=== PATIENT | female | born 1985 | race Caucasian/White ===

== ENCOUNTER 2018-09-17 13:04 | Emergency (ER) | payer BC ==
--- OUTSIDE RECORDS SUMMARY | 2018-09-17 13:08 | XMS REPORT | Clinical Summary ---
:1985 Author Organization [facility] Address [address] [place] [address] Care Team Providers Name Role Phone Williams Martinez MD Primary Care Provider Allergies Active Allergy Reactions Severity Noted Date Comments Meperidine Other (See Comments) 04/17/2018 Hallucinate Medications Medication Sig Dispensed Refills Start Date End Date Status acetaminophen Take 325 mg by 0 Active (TYLENOL) 325 MG mouth every 6 tablet (six) hours as needed for fever. acetaminophen-codein Take 1-2 30 tablet 0 08/30/2018 Active e (TYLENOL WITH tablets by 9 CODEINE #3) 300-30 mouth every 6 mg per tablet (six) hours as needed for moderate pain for up to 30 days. HYDROcodone-acetamin Take 1 tablet 0 Discontinued ophen (NORCO) 10-325 by mouth every 8 mg per tablet 6 (six) hours as needed for moderate pain. sulfamethoxazole-tri Take 1 tablet 0 Discontinued methoprim (BACTRIM by mouth 2 8 SS) 400-80 mg per (two) times a tablet day. acetaminophen-codein Take 1 tablet 30 tablet 0 05/02/2018 e (TYLENOL WITH by mouth every 8 CODEINE #3) 300-30 6 (six) hours mg per tablet as needed for moderate pain for up to 10 days. naproxen (NAPROSYN) naproxen 500 0 03/19/2018 Discontinued 500 MG tablet mg tablet 8 sulfamethoxazole-tri daily. 0 Discontinued methoprim (BACTRIM) 8 400-80 mg per tablet acetaminophen-codein Take 1 tablet 0 Discontinued e (TYLENOL WITH by mouth every 8 CODEINE #3) 300-30 4 (four) hours mg per tablet as needed for moderate pain. levoFLOXacin Take 1 tablet 7 tablet 0 05/23/2018 Discontinued (LEVAQUIN) 500 MG (500 mg total) 8 tablet by mouth daily for 7 days. docusate sodium Take 1 capsule 20 capsule 0 05/30/2018 Discontinued (COLACE) 100 MG (100 mg total) 8 capsule by mouth 2 (two) times a day for 10 days. traMADol (ULTRAM) 50 Take 2 tablets 30 tablet 0 05/30/2018 Discontinued mg tablet (100 mg total) 8 by mouth every 6 (six) hours as needed for moderate pain for up to 10 days. docusate sodium Take 1 capsule 20 capsule 0 05/30/2018 (COLACE) 100 MG (100 mg total) 8 capsule by mouth 2 (two) times a day for 10 days. acetaminophen-codein Take 1 tablet 30 tablet 0 05/30/2018 e (TYLENOL WITH by mouth every 8 CODEINE #3) 300-30 4 (four) hours mg per tablet as needed for moderate pain for up to 10 days. tamsulosin (FLOMAX) Take 1 capsule 30 capsule 0 05/30/2018 0.4 mg capsule (0.4 mg total) 9 by mouth daily for 30 days. oxybutynin Take 1 tablet 90 tablet 0 05/30/2018 (DITROPAN) 5 MG (5 mg total) 9 tablet by mouth 3 (three) times a day as needed for bladder spasms for up to 30 days. ciprofloxacin Take 1 tablet 16 tablet 0 05/30/2018 (CIPRO) 500 MG (500 mg total) 8 tablet by mouth 2 (two) times a day for 8 days. Take for 5 days, then take remainder starting one day before follow up phenazopyridine Take 1 tablet 30 tablet 0 05/30/2018 (PYRIDIUM) 100 MG (100 mg total) 8 tablet by mouth 3 (three) times a day as needed for bladder spasms for up to 10 days. ciprofloxacin Take 1 tablet 6 tablet 0 07/11/2018 (CIPRO) 500 MG (500 mg total) 9 tablet by mouth 2 (two) times a day for 3 days. sulfamethoxazole-tri Take 1 tablet 14 tablet 0 09/03/2018 methoprim (BACTRIM by mouth 2 9 DS) 800-160 mg per (two) times a tablet day for 7 days. Active Problems Problem Noted Date UPJ (ureteropelvic junction) obstruction 05/01/2018 Encounters Date Type Specialty Care Team Description 09/16/2018 Telephone Urology Flori June MD 09/03/2018 Telephone Urology Flori June MD 08/30/2018 Telephone Urology Flori June MD 08/27/2018 Telephone Urology Flori June MD 08/26/2018 Office Visit Urology Flori June UPJ (ureteropelvic MD junction) obstruction 08/02/2018 Hospital Encounter Radiology Flori June, Kidney stones; UPJ (ureteropelvic junction) obstruction 08/02/2018 Hospital Encounter Radiology Flori June, Kidney stones; UPJ (ureteropelvic junction) obstruction 07/15/2018 Procedure visit Urology Flori June, Kidney stones (Primary Dx); UPJ (ureteropelvic junction) obstruction 07/11/2018 Telephone Urology Minoo Guerrero MA 07/01/2018 Procedure visit Urology Flori June UPJ (ureteropelvic MD junction) obstruction (Primary Dx) 07/01/2018 Telephone Urology Flori June MD 06/13/2018 Telephone Urology Flori June MD 05/29/2018 Surgery Urology Flori June, ROBOTIC RIGHT MD PYELOPLASTY, RIGHT URETEROSCOPY 05/29/2018 Anesthesia Event Urology Mervat Gilmore 05/29/2018 - Hospital Encounter General Internal Flori June UPJ ( ureteropelvic 05/31/2018 Medicine MD junction) obstruction 05/27/2018 Telephone Urology Flori June MD 05/23/2018 Telephone Urology Joey Avila MD 05/23/2018 Telephone Urology Joey Avila MD 05/20/2018 Pre-Admit Testing Pre-Admission Flori June, Pre-op testing Appointment Testing MD (Primary Dx) 05/20/2018 Refill Urology Joey Avila MD 05/16/2018 Telephone Urology Joey Avila MD 05/07/2018 Office Visit Urology Margarita Ureteropetoan Cook MD junction (UPJ) obstruction (Primary Dx) 05/07/2018 Hospital Encounter Radiology LANETTE AvilaJ (ureteropelvic MD Joey junction) obstruction 05/02/2018 Orders Only Urology LANETTE AvilaJ (ureteropelvic MD Joey junction) obstruction (Primary Dx) 05/02/2018 Telephone Urology Joey Avila MD 05/01/2018 - Hospital Encounter General Internal Margarita, Obstruction of left 05/02/2018 Medicine MD Joey ureteropelvic junction (UPJ) 05/01/2018 Telephone Urology Joey Avila MD 04/29/2018 Telephone Urology Joey Avila MD 04/22/2018 Orders Only Urology Sebastian Layne MA 04/22/2018 Telephone Urology Joey Avila MD 04/19/2018 Hospital Encounter Radiology Joey Avila MD 04/19/2018 Hospital Encounter Radiology Joey Avila MD 04/19/2018 Hospital Encounter Radiology Joey Avila MD 04/17/2018 Office Visit Urology Margarita, Obstruction of left MD Joey ureteropelvic junction (UPJ) (Primary Dx) 04/03/2018 Telephone Urology Joey Avila MD after 09/16/2017 Immunizations Name Dates Previously Given Next Due FLUCELVAX QUAD PF (0.5mL syringe) 05/01/2018 Family History Medical History Relation Name Comments Aneurysm Mother Relation Name Status Comments Mother Alive Social History Tobacco Use Types Packs/Day Years Used Date Current Some Day Smoker 0.5 18 Smokeless Tobacco: Never Used Tobacco Cessation: Ready to Quit: No; Counseling Given: No Alcohol Use Drinks/Week oz/Week Comments No Sex Assigned at Date Recorded Not on file Job Start Date Occupation Industry Not on file Not on file Not on file Travel History Travel Start Travel End No recent travel history available. 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 Plan of Treatment Date Type Specialty Care Team Description 09/27/2018 Appointment Radiology Flori June MD [address] [facility] [address] [place] [phone] Health Maintenance Due Date Last Done Comments CERVICAL CANCER SCREENING 2006 INFLUENZA VACCINE 01/16/2019 05/01/2018 Implants Implanted Type Area Tankroom Tender Device Shelf Model / Identifier Expiration Serial / Date Lot Clip Ligtng Hem-O-Aram Endoscpc Aplr [facility] Lg - [id number] Surgical N/A: WECK CLOSURE [id number] / Implanted: Qty: 1 on 05/29/2018 by Flori June MD Implants; Abdomen, SYSTEMS / Expanders; Middle Extenders; Quadrant/No Surgical n Specific Wires Clip Ligtng Hem-O-Aram Endoscpc Aplr [facility] Lg - [id number] Surgical N/A: WECK CLOSURE [id number] / Implanted: 05/29/2018 (Quantity not on file) Implants; Abdomen, SYSTEMS / Expanders; Middle Extenders; Quadrant/No Surgical n Specific Wires Stent Uretl Polrs Ult [id number] [id number] 26cm Hydroplus W/O Gw - [id number] Urological Right: BSC UROLOGY 01/30/2021 192 133 / Implanted: Qty: 1 on 05/29/2018 by Flori June MD Implants or Ureter, / Sets [place] [id number] Procedures Procedure Name Priority Date/Time Associated Comments Diagnosis PT AND PTT Routine 08/27/2018 9:11 UPJ (ureteropelvic Results for this AM CDT junction) procedure are in obstruction the results section. CBC WITH PLATELET AND Routine 08/27/2018 9:11 UPJ (ureteropelvic Results for this DIFFERENTIAL AM CDT junction) procedure are in obstruction the results section. COMPREHENSIVE Routine 08/27/2018 9:11 UPJ (ureteropelvic Results for this METABOLIC PANEL AM CDT junction) procedure are in obstruction the results section. MICROSCOPIC Routine 08/26/2018 10:32 Results for this EXAMINATION AM CDT procedure are in the results section. URINALYSIS, COMPLETE, Routine 08/26/2018 10:32 UPJ (ureteropelvic Results for this WITH REFLEX TO CULTURE AM CDT junction) procedure are in obstruction the results section. URINE CULTURE, Routine 08/26/2018 10:32 Results for this COMPREHENSIVE (JOSE C AM CDT procedure are in HIST) the results section. POC URINALYSIS Routine 08/26/2018 10:26 UPJ (ureteropelvic Results for this DIPSTICK AM CDT junction) procedure are in obstruction the results section. 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 US RENAL Routine 08/02/2018 11:30 Kidney stones Results for this AM [employer]ED TRUCK [employer] UPJ (ureteropelvic procedure are in junction) the results obstruction section. POC URINALYSIS Routine 07/15/2018 9:39 Kidney stones Results for this DIPSTICK AM [employer]ED [employer] procedure are in the results section. ESTIMATED GFR Routine 05/31/2018 4:56 Results for this AM [employer]ED [employer] procedure are in the results section. HC COMPLETE BLD COUNT Routine 05/31/2018 4:56 Results for this W/AUTO DIFF AM [employer]ED [employer]UCK [employer] procedure are in the results section. BASIC METABOLIC PANEL Routine 05/31/2018 4:56 Results for this AM [employer]ED [employer]UCK [employer] procedure are in the results section. ESTIMATED GFR Routine 05/30/2018 6:45 Results for this AM [employer]IENCED TRUCK [employer] procedure are in the results section. BASIC METABOLIC PANEL Routine 05/30/2018 6:45 Results for this AM [employer]ED TRUCK [employer] procedure are in the results section. BASIC METABOLIC PANEL Routine 05/30/2018 4:32 Results for this AM [employer]ED TRUCK [employer] procedure are in the results section. HEMOGLOBIN & Routine 05/30/2018 4:32 Results for this HEMATOCRIT AM [employer]ED [employer] procedure are in the results section. XR ABDOMEN 1 VW Routine 05/29/2018 3:40 Results for this PORTABLE PM [employer] procedure are in the results section. SURGICAL PATHOLOGY Routine 05/29/2018 3:09 Results for this REQUEST PM [employer]ED TR[employer] procedure are in the results section. HC COMPLETE BLD COUNT STAT 05/29/2018 2:30 Results for this W/AUTO DIFF PM [employer]ED TRUCK [employer] procedure are in the results section. ESTIMATED GFR STAT 05/29/2018 2:28 Results for this PM [employer]IENCED TRUCK [employer]IVER procedure are in the results section. BASIC METABOLIC PANEL STAT 05/29/2018 2:28 Results for this PM [employer]ED TRUCK [employer] procedure are in the results section. CALCULI ANALYSIS WITH Routine 05/29/2018 11:40 Results for this PHOTO AM EX[employer]IENCED TRUCK [employer]IVER procedure are in the results section. 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 TRUCK DRIVER Procedure Note - Mervat Gilmore - 05/29/2018 8:43 AM EXPERIENCED TRUCK DRIVER ANESTHESIA INTUBATION Performed by: Mervat Gilmore Authorized by: Stas Carlos MD Location: OR Urgency: Elective Difficult Airway: No Resident/GAS DESULFURIZER/AA: Mervat Gilmore Performed by: resident/GAS DESULFURIZER/AA Preoxygenated with 100% O2: Yes Mask Ventilation: Easy mask Final Airway Type: Endotracheal airway Final Endotracheal Airway: ETT Cuffed: Yes Technique Used: Direct laryngoscopy Insertion Site: Oral Blade Type: Ruiz Laryngoscope Blade/Videolaryngoscope Blade Size: 2 ETT Size (mm): 7.0 Cuff at minimum occlusion pressure: Yes Measured from: Lips ETT to Lips (cm): 20 Placement Verified by: CO2 detection, direct visualization and equal breath sounds Laryngoscopic view: Grade I - full view of glottis Number of Attempts at Approach: 1 PYELOPLASTY, LAPAROSCOPIC, 05/29/2018 8:00 AM EXPERIENCED TRUCK DRIVER UPJ (ureteropelvic junction) ROBOT-ASSISTED obstruction Special Needs DAVINCI ESTIMATED GFR Routine 05/20/2018 10:03 Results for this AM [employer]ED [employer]UCK [employer] procedure are in the results section. URINALYSIS SCREEN AND Routine 05/20/2018 10:03 Pre-op testing Results for this MICROSCOPY, WITH AM [employer]PERIENCED TRUCK DRIVER procedure are in REFLEX TO CULTURE the results section. HCG QUALITATIVE, SERUM Routine 05/20/2018 10:03 Pre-op testing Results for this SCREEN AM [employer]ED [employer]UCK [employer] procedure are in the results section. TYPE AND SCREEN Routine 05/20/2018 10:03 Pre-op testing Results for this AM [employer]ED [employer] procedure are in the results section. PARTIAL THROMBOPLASTIN Routine 05/20/2018 10:03 Pre-op testing Results for this TIME (PTT) AM [employer]ED TRUCK [employer] procedure are in the results section. PROTHROMBIN TIME WITH Routine 05/20/2018 10:03 Pre-op testing Results for this INR AM [employer]ED [employer]UCK [employer] procedure are in the results section. COMPREHENSIVE Routine 05/20/2018 10:03 Pre-op testing Results for this METABOLIC PANEL AM [employer]ED [employer]UCK [employer] procedure are in the results section. HC COMPLETE BLD COUNT Routine 05/20/2018 10:03 Pre-op testing Results for this W/AUTO DIFF AM [employer]ED TRUCK [employer] procedure are in the results section. GRAM STAIN Routine 05/20/2018 10:03 Results for this AM [employer]ED TRUCK [employer] procedure are in the results section. URINE CULTURE Routine 05/20/2018 10:03 Results for this AM [employer]ED TR[employer] procedure are in the results section. NM RENAL SCAN WFLOW Routine 05/07/2018 11:58 UPJ (ureteropelvic Results for this FUNCT SGL INT W/MAG 3 AM EXPERIENCED TRUCK [employer]IVER junction) obstruction procedure are in the results section. POTASSIUM LEVEL Routine 05/02/2018 6:00 Results for this AM [employer]ED [employer] procedure are in the results section. HC COMPLETE BLD COUNT Routine 05/02/2018 4:05 Results for this W/AUTO DIFF AM [employer]ED [employer] procedure are in the results section. ESTIMATED GFR Routine 05/02/2018 4:00 Results for this AM [employer]PERIENCED TRUCK [employer] procedure are in the results section. BASIC METABOLIC PANEL Routine 05/02/2018 4:00 Results for this AM [employer]IENCED TRUCK [employer] procedure are in the results section. HC COMPLETE BLD COUNT STAT 05/01/2018 8:20 Results for this W/AUTO DIFF PM [employer]ED [employer]UCK [employer]IVER procedure are in the results section. ESTIMATED GFR STAT 05/01/2018 7:49 Results for this PM [employer] procedure are in the results section. BASIC METABOLIC PANEL STAT 05/01/2018 7:49 Results for this PM [employer]ED TRUCK [employer] procedure are in the results section. IR RIGHT NEPHROSTOMY Routine 05/01/2018 11:45 Obstruction of left Results for this INITIAL PLACEMENT AM EXPERIENCED TRUCK [employer]IVER ureteropelvic procedure are in junction (UPJ) the results section. POTASSIUM LEVEL STAT 05/01/2018 9:27 Results for this AM [employer]PERIENCED TRUCK [employer]IVER procedure are in the results section. PT AND PTT Routine 04/17/2018 3:58 Obstruction of left Results for this PM CDT ureteropelvic procedure are in junction (UPJ) the results section. COMPREHENSIVE Routine 04/17/2018 3:58 Obstruction of left Results for this METABOLIC PANEL PM CDT ureteropelvic procedure are in junction (UPJ) the results section. CBC WITH PLATELET AND Routine 04/17/2018 3:58 Obstruction of left Results for this DIFFERENTIAL PM CDT ureteropelvic procedure are in junction (UPJ) the results section. FL EXTERNAL STUDY EXAM Routine 03/26/2018 12:31 Results for this PM CDT procedure are in the results section. CT ABD/PELVIC EXTERNAL Routine 03/19/2018 4:27 Results for this STUDY PM CDT procedure are in the results section. CT ABD/PELVIC EXTERNAL Routine 03/19/2018 9:41 Results for this STUDY AM CDT procedure are in the results section. after 09/16/2017 Results PT and PTT (08/27/2018 9:11 AM CDT)Only the most recent of2 resultswithin the time period is included. PTT 28 22 - 34 sec [facility] [place] Comment: This test has not been validated for monitoring unfractionated heparin therapy. For testing that is validated for this type of therapy, please refer to the Heparin Anti-Xa assay (test code 46287). For additional information, please refer to http://education.Odysii/faq/BYD959 (This link is being provided for informational/educational purposes only.) INR 1.0 [facility] [place] Comment: Reference Range 0.9-1.1 Moderate-intensity Warfarin Therapy 2.0-3.0 Higher-intensity Warfarin Therapy 3.0-4.0 Prothrombin time 10.4 9.0 - 11.5 sec [facility] [place] Specimen Blood Narrative Performed At FASTING:YES [facility] FASTING: YES Resulting Agency Comment Performing Organization Information: Site ID: [id number] Name: [facility] Address: [address] [place] [address] Director: Radhika Fleming Performing Organization Address City/State/Zipcode Phone Number [facility] [address] [address] CBC with platelet and differential (08/27/2018 9:11 AM CDT)Only the most recent of7 resultswithin the time period is included. WBC 8.8 3.8 - 10.8 Thousand/uL [facility] [place] RBC 4.64 3.80 - 5.10 Million/uL [facility] [place] HGB 14.7 11.7 - 15.5 g/dL [facility] [place] HCT 43.0 35.0 - 45.0 % [facility] [place] MCV 92.7 80.0 - 100.0 fL [facility] [place] MCH 31.7 27.0 - 33.0 pg [facility] [place] MCHC 34.2 32.0 - 36.0 g/dL [facility] [place] RDW 12.5 11.0 - 15.0 % [facility] [place] Platelet count 247 140 - 400 Thousand/uL [facility] [place] MPV 11.0 7.5 - 12.5 fL [facility] [place] Neutrophils, absolute 5,007 1,500 - 7,800 cells/uL [facility] [place] Lymphocytes, absolute 2,834 850 - 3,900 cells/uL [facility] [place] Monocytes, absolute 590 200 - 950 cells/uL [facility] [place] Eosinophils, absolute 299 15 - 500 cells/uL [facility] [place] Basophils, absolute 70 0 - 200 cells/uL [facility] [place] Neutrophils 56.9 % [facility] [place] Lymphocytes 32.2 % [facility] [place] Monocytes 6.7 % [facility] [place] Eosinophils 3.4 % [facility] [place] Basophils + RC 0.8 % [facility] [place] Specimen Blood Narrative Performed At FASTING:YES [facility] FASTING: YES Resulting Agency Comment Performing Organization Information: Site ID: [id number] Name: [facility] Address: [address] [place] [id number] Director: Radhika Fleming Performing Organization Address City/State/Zipcode Phone Number [facility] [place] [phone] Comprehensive metabolic panel (08/27/2018 9:11 AM CDT)Only the most recent of3 resultswithin the time period is included. Glucose 99 65 - 99 mg/dL [facility] Comment: [place] Fasting reference interval BUN, whole blood 6 (L) 7 - 25 mg/dL [facility] [place] Creatinine 0.70 0.50 - 1.10 mg/dL [facility] [place] EGFR Non-Afr. [place] 114 > OR=60 [facility] mL/min/1.73m2 [place] EGFR 132 > OR=60 [facility] mL/min/1.73m2 [place] BUN/creatinine ratio 9 6 - 22 (calc) [facility] Sodium 140 135 - 146 mmol/L [facility] Potassium 4.0 3.5 - 5.3 mmol/L [facility] Chloride 104 98 - 110 mmol/L [facility] CO2 28 20 - 32 mmol/L [facility] Calcium 9.5 8.6 - 10.2 mg/dL [facility] Protein 7.2 6.1 - 8.1 g/dL [facility] Albumin, S 4.3 3.6 - 5.1 g/dL [facility] Globulin, total 2.9 1.9 - 3.7 g/dL [facility] (calc) [place] Albumin/globulin ratio 1.5 1.0 - 2.5 (calc) [facility] Total bilirubin 0.3 0.2 - 1.2 mg/dL [facility] Alkaline phosphatase 94 33 - 115 U/L [facility] AST 20 10 - 30 U/L [facility] ALT 19 6 - 29 U/L [facility] [place] Specimen Blood Narrative Performed At FASTING:YES [facility] FASTING: YES Resulting Agency Comment Performing Organization Information: Site ID: [id number] Name: [facility] Address: [address] [place] [id number] Director: Radhika Fleming Performing Organization Address City/State/Zipcode Phone Number [facility] [place] [phone] Urine Culture, Comprehensive (08/26/2018 10:32 AM CDT) Urine culture Staphylococcus epidermidis [facility] Greater than 100,000 colony forming units per mL (A) Comment: Based on susceptibility to oxacillin this isolate would be susceptible to: *Penicillinase-stable penicillins, such as: Cloxacillin, Dicloxacillin, Nafcillin *Beta-lactam combination agents, such as: Amoxicillin-clavulanic acid, Ampicillin-sulbactam, Piperacillin-tazobactam *Oral cephems, such as: Cefaclor, Cefdinir, Cefpodoxime, Cefprozil, Cefuroxime, Cephalexin, Loracarbef *Parenteral cephems, such as: Cefazolin, Cefepime, Cefotaxime, Cefotetan, Ceftaroline, Ceftizoxime, Ceftriaxone, Cefuroxime *Carbapenems, such as: Doripenem, Ertapenem, Imipenem, Meropenem Narrative Performed At [facility]formed at: [id number] Material Requisitioner: Samy Gao MD, Phone:[phone] Organism Antibiotic Method Susceptibility Staphylococcus epidermidis Ciprofloxacin S ug/mL: Susceptible Staphylococcus epidermidis Gentamicin S ug/mL: Susceptible Staphylococcus epidermidis Levofloxacin S ug/mL: Susceptible Staphylococcus epidermidis Linezolid S ug/mL: Susceptible Staphylococcus epidermidis Nitrofurantoin S ug/mL: Susceptible Staphylococcus epidermidis Oxacillin S ug/mL: Susceptible Staphylococcus epidermidis Penicillin R ug/mL: Resistant Staphylococcus epidermidis Quinupristin/Dalfopristin S ug/mL: Susceptible Staphylococcus epidermidis Rifampin S ug/mL: Susceptible Staphylococcus epidermidis Tetracycline S ug/mL: Susceptible Staphylococcus epidermidis Trimethoprim/Sulfamethoxazole S ug/mL: Susceptible Staphylococcus epidermidis Vancomycin S ug/mL: Susceptible Comment: Performed at: [id number] Material Requisitioner: Samy Gao MD, Phone:[phone] Performing Organization Address [facility] Phone Number [facility] URINALYSIS, COMPLETE, WITH REFLEX TO CULTURE (08/26/2018 10:32 AM CDT) Specific gravity, urine 1.007 1.005 - 1.030 [facility] pH, urine 7.0 5.0 - 7.5 [facility] Color, UA Yellow Yellow [facility] Appearance Clear Clear [facility] WBC esterase, urine 3+ (A) Negative [facility] Protein, UA Negative Negative/Trace [facility] Glucose, urine Negative Negative [facility] Ketones, UA Negative Negative [facility] Occult blood, urine Negative Negative [facility] Bilirubin, UA Negative Negative [facility] Urobilinogen, UA 0.2 0.2 - 1.0 mg/dL [facility] Nitrite, UA Negative Negative [facility] Microscopic examination See below:Comment: Microscopic [facility] was indicated and was performed. Urinalysis reflex CommentComment: This specimen [facility] has reflexed to a Urine Culture. Narrative Performed At Performed at: Lab[id number] Material Requisitioner: Samy Gao MD, Phone:[phone] Performing Organization Address City/[facility] Phone Number [facility] Microscopic Examination (08/26/2018 10:32 AM CDT) WBC, UA 11-30 (A) 0 - 5 /hpf [facility] RBC, UA 3-10 (A) 0 - 2 /hpf [facility] Epithelial cells (non renal) 0-10 0 - 10 /hpf [facility] Mucus, UA Present Not Estab. [facility] Bacteria, UA Few None seen/Few [facility] Narrative Performed At Performed at:01 - [facility] [address] [place], [id number] Material Requisitioner: Samy Gao MD, Phone:[phone] Performing Organization Address City/State/[facility] Phone Number [facility] POC urinalysis dipstick (08/26/2018 10:26 AM CDT)Only the most recent of2 resultswithin the time period is included. 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 Narrative Performed At PROCEDURE:NM RENAL SCAN WFLOW FUNCT SGL INT W MAG 3 [facility] INDICATION:Hydronephrosis.UPJ obstruction. TECHNIQUE: The patient was injected with 10 mCi of Tc-99m MAG-3, IV. Dynamic images of the abdomen were acquired for 40 minutes. At 20 minutes, a standard dose of IV lasix was administered. FINDINGS:Perfusion to both kidneys appears normal.Cortical transit time through both kidneys is less than 5 minutes.Urine flows freely from the left kidney into the bladder.There is stasis in the right kidney at 20 minutes, with an indeterminate response to Lasix.The half-time of emptying is approximately 20 minutes. Normal washout is less than 10 minutes. High grade obstruction is suggested if greater than 20 minutes. Between 10 and 20 minutes is indeterminate. Split function:Left kidney 62%, right kidney 38%. IMPRESSION: 1.No evidence for high-grade obstruction of either kidney, but a significant partial obstruction of the right kidney is suspected, which appears worse when compared to 05/07/2018. [id number] Procedure Note Interface, Radiology Results Incoming - 08/02/2018 1:04 PM EXPERIENCED TRUCK DRIVER PROCEDURE: NM RENAL SCAN WFLOW FUNCT SGL INT W MAG 3 INDICATION: Hydronephrosis. UPJ obstruction. TECHNIQUE: The patient was injected with 10 mCi of Tc-99m MAG-3, IV. Dynamic images of the abdomen were acquired for 40 minutes. At 20 minutes, a standard dose of IV lasix was administered. FINDINGS: Perfusion to both kidneys appears normal. Cortical transit time through both kidneys is less than 5 minutes. Urine flows freely from the left kidney into the bladder. There is stasis in the right kidney at 20 minutes, with an indeterminate response to Lasix. The half-time of emptying is approximately 20 minutes. Normal washout is less than 10 minutes. High grade obstruction is suggested if greater than 20 minutes. Between 10 and 20 minutes is indeterminate. Split function: Left kidney 62%, right kidney 38%. IMPRESSION: 1. No evidence for high-grade obstruction of either kidney, but a significant partial obstruction of the right kidney is suspected, which appears worse when compared to 05/07/2018. [facility]-[id number] Performing Organization Address City/State/Zipcode Phone Number [facility] [address] [place] [address] Renal (08/02/2018 11:30 AM EXPERIENCED TRUCK DRIVER) Narrative Performed At EXAMINATION: RENAL [facility] CLINICAL HISTORY:N20.0 Calculus of kidney, N13.5 Crossing vessel and stricture of ureter without hydronephrosis, PedhydronephrosisUPJ obstruction suspected COMPARISON:None. IMPRESSION: The right kidney .5 cm in length. The left kidney exyhvgsp88.7 cm in length. There is moderate to severe right hydronephrosis. There is no left hydronephrosis. There is no renal mass, stone, or cyst. Echogenicity is normal. [id number] Procedure Note Interface, Radiology Results Incoming - 08/02/2018 1:22 PM EXPERIENCED TRUCK DRIVER EXAMINATION: US RENAL CLINICAL HISTORY: N20.0 Calculus of kidney, N13.5 Crossing vessel and stricture of ureter without hydronephrosis, Ped hydronephrosis UPJ obstruction suspected COMPARISON: None. IMPRESSION: The right kidney measures 10.5 cm in length. The left kidney measures 10.7 cm in length. There is moderate to severe right hydronephrosis. There is no left hydronephrosis. There is no renal mass, stone, or cyst. Echogenicity is normal. [facility]-[id number] Performing Organization Address [facility] Phone Number [facility] [address] [place] [address] Estimated GFR (05/31/2018 4:56 AM EXPERIENCED TRUCK DRIVER)Only the most recent of6 resultswithin the time period is included. Estimated GFR >=90 mL/min/1.73 m2 [facility] Comment: HOSPITAL CatergoryUnitsInterpretation G1 >=90 Normal or high G2 60-89Mildly decreased [id number] to moderately decreased L9h18-27Uycikmjncp to severely decreased G4 15-29Severely decreased G5 <15Kidney failure The eGFR was calculated using the Chronic Kidney Disease Epidemiology Collaboration (CKD-EPI) equation. Interpretation is based on recommendations of the National Kidney Foundation-Kidney Disease Outcomes Quality Initiative (NKF-KDOQI) published in 2014. Specimen Plasma specimen Performing Organization Address [facility] Phone Number [facility] DEPARTMENT OF PATHOLOGY AND [address] [place] [address] GENOMIC MEDICINE [address] [address] Basic metabolic panel (05/31/2018 4:56 AM EXPERIENCED TRUCK DRIVER)Only the most recent of6 resultswithin the time period is included. Sodium 137 135 - 148 mEq/L [facility] Potassium 4.3 3.5 - 5.0 mEq/L [facility] Chloride 103 98 - 112 mEq/L [facility] CO2 24 24 - 31 mEq/L [facility] Anion gap 10@ANIO 7 - 15 mEq/L [facility] BUN 8 6 - 20 mg/dL [facility] Creatinine 0.70 0.50 - 0.90 mg/dL [facility] Glucose 95 65 - 99 mg/dL [facility] Calcium 8.8 8.3 - 10.2 mg/dL [facility] Specimen Plasma specimen Performing Organization Address City/[facility]/Zipcode Phone Number [facility] DEPARTMENT OF PATHOLOGY AND [address] [place] [address] [address] Hemoglobin & hematocrit (05/30/2018 4:32 AM EXPERIENCED TRUCK DRIVER) HGB 10.5 (L) 12.0 - 16.0 g/dL [facility] HCT 32.0 (L) 37.0 - 47.0 % [facility] Specimen Blood Performing Organization Address City/[facility] Phone Number [facility] DEPARTMENT OF PATHOLOGY AND [address] [place] [phone] [place] [address] XR Abdomen 1 Vw Portable (05/29/2018 3:40 PM EXPERIENCED TRUCK DRIVER) Narrative Performed At EXAMINATION:XR ABDOMEN 1 VW PORTABLE [facility] CLINICAL HISTORY:stent placement COMPARISON:None. IMPRESSION: Right double-J ureteral stent with loops formed in the expected region of the right renal pelvis and urinary bladder. Multi fenestrated surgical drain in the right abdomen. Subcutaneous emphysema and retroperitoneal emphysema over the right flank. [facility]-[id number] Procedure Note Interface, Radiology Results Incoming - 05/29/2018 4:20 PM EXPERIENCED TRUCK DRIVER EXAMINATION: XR ABDOMEN 1 VW PORTABLE CLINICAL HISTORY: stent placement COMPARISON: None. IMPRESSION: Right double-J ureteral stent with loops formed in the expected region of the right renal pelvis and urinary bladder. Multi fenestrated surgical drain in the right abdomen. Subcutaneous emphysema and retroperitoneal emphysema over the right flank. [facility]-[id number] Performing Organization Address City/[facility]/Zipcode Phone Number [facility] [address] [place] [address] Surgical pathology request (05/29/2018 3:09 PM EXPERIENCED TRUCK DRIVER) [facility] DEPARTMENT OF PATHOLOGY AND GENOMIC MEDICINE Surgical pathology report See link below for PDF [facility] DEPARTMENT OF Lab Report PATHOLOGY AND GENOMIC MEDICINE Result status This is Final Report [facility] DEPARTMENT OF for [id number] PATHOLOGY AND GENOMIC MEDICINE Performing Organization Address City/State/Zipcode Phone Number [facility] DEPARTMENT OF PATHOLOGY AND [address] [place] [phone] [place] [address] Calculi analysis with photo (05/29/2018 11:40 AM EXPERIENCED TRUCK DRIVER) Calculi mass 107 mg [facility] Calculi number 2 [facility] Calculi size 5 to 9 [facility] descrption See Note [facility] Comment: Specimen consists of two, medium, brown/neves, irregular calculi fragments. Calculi composition See Note [facility] Comment: Calculi composed primarily of: 10% calcium oxalate monohydrate, and 90% calcium phosphate (hydroxy- and carbonate- apatite). INTERPRETIVE INFORMATION: Calculi (Stone) analysis Calculi are the products of physiological processes that yield crystalline compounds in a matrix of biological compounds and blood.Matrix components are not reported.The clinically significant crystalline components identified in calculi specimens are reported.Gross description may not be consistent with composition determined by FTIR analysis. EER calculi (stone) analysis See Note [facility] and photo Comment: Access [facility] Enhanced Report using either link below: -Direct access: [email or web address] Username, Password: [email or web address] Username: [email or web address] Password: [email or web address] Performed by [facility], [address] [place] [address] [email or web address], Rolo Vanegas MD - Lab. Director Specimen Serum Narrative Performed At [id number] [facility] RIGHT RENAL STONE Performing Organization Address City/State/Zipcode Phone Number [facility] [address] [place] [address] [facility] [address] [place] [address] Urinalysis screen and microscopy, with reflex to culture (05/20/2018 10:03 AM EXPERIENCED TRUCK DRIVER) Specimen site Clean catch [facility] Color, UA Yellow [facility] Appearance, UA Clear [facility] Specific gravity, UA 1.011 1.001 - 1.035 [facility] pH, UA 7.0 5.0 - 8.5 [facility] Protein, UA Negative Negative [facility] Glucose, UA Negative Negative [facility] Ketones, UA Negative Negative [facility] Bilirubin, UA Negative Negative [facility] Blood, UA Negative Negative [facility] Nitrite, UA Negative Negative [facility] Urobilinogen, UA <2.0 <2.0 [facility] Leukocyte esterase, UA Trace (A) Negative [facility] Epithelial cells, UA 4 /HPF [facility] WBC, UA 2 0 - 4 /HPF [facility] RBC, UA 1 0 - 5 /HPF [facility] Bacteria, UA Few None seen [facility] Yeast, UA None seen [facility] Yeast with pseudohyphae, UA None seen [facility] Specimen Urine Performing Organization Address City/[facility] Phone Number [facility] DEPARTMENT OF PATHOLOGY AND [address] [place] [phone] Partial thromboplastin time, activated (05/20/2018 10:03 AM EXPERIENCED TRUCK DRIVER) PTT 28.7 23.0 - 36.0 sec [facility] Comment: PTT therapeutic range for unfractionated heparin is 61.0-112.0 seconds which corresponds to Anti-Xa 0.3-0.7 U/ml. Specimen Blood Performing Organization Address City/[facility] Phone Number [facility] DEPARTMENT OF PATHOLOGY AND [address] [place] [address] Prothrombin time with INR (05/20/2018 10:03 AM EXPERIENCED TRUCK DRIVER) Prothrombin time 12.6 11.5 - 14.5 sec [facility] INR 1.0 [facility] Comment: HOSPITAL The International Normalized Ratio (INR) is a therapeutic monitoring tool for patients who are stable on oral anticoagulant therapy. An INR of 2.0-3.0 is suggested for deep vein thrombosis/pulmonary embolism. Specimen Blood Performing Organization Address City/[facility] Phone Number [facility] DEPARTMENT OF PATHOLOGY AND [address] [place] [phone] [place] [phone] Gram stain (05/20/2018 10:03 AM EXPERIENCED TRUCK DRIVER) Gram stain result No WBC's [facility] Many Gram positive rods Few Gram negative rods (A) Comment: Specimen Information Specimen Source: Urine Specimen Site: Clean catch Gram stain result Enterobacter cloacae [facility] 10-5 cfu/ml (A) Specimen Urine Organism Antibiotic Method Susceptibility Enterobacter cloacae Ampicillin DWAYNE >16 mcg/mL: Resistant Enterobacter cloacae Amoxicillin/Clavulanate DWAYNE >16/8 mcg/mL: Resistant Enterobacter cloacae Amikacin DWAYNE <=4 mcg/mL: Susceptible Enterobacter cloacae Aztreonam DWAYNE <=1 mcg/mL: Susceptible Enterobacter cloacae Ceftazidime DWAYNE <=0.5 mcg/mL: Susceptible Enterobacter cloacae Ciprofloxacin DWAYNE <=0.5 mcg/mL: Susceptible Enterobacter cloacae Ceftriaxone DWAYNE <=0.5 mcg/mL: Susceptible Enterobacter cloacae Cefuroxime Sodium DWAYNE >16 mcg/mL: Resistant Enterobacter cloacae Cefazolin DWAYNE 2 mcg/mL: Resistant Enterobacter cloacae Cefepime DWAYNE <=0.5 mcg/mL: Susceptible Enterobacter cloacae Nitrofurantoin DWAYNE >64 mcg/mL: Resistant Enterobacter cloacae Cefoxitin DWAYNE 8 mcg/mL: Resistant Enterobacter cloacae Gentamicin DWAYNE 1 mcg/mL: Susceptible Enterobacter cloacae Imipenem DWAYNE <=0.25 mcg/mL: Susceptible Enterobacter cloacae Levofloxacin DWAYNE <=1 mcg/mL: Susceptible Enterobacter cloacae Meropenem DWAYNE <=0.125 mcg/mL: Susceptible Enterobacter cloacae Tobramycin DWAYNE 1 mcg/mL: Susceptible Enterobacter cloacae Ampicillin/Sulbactam DWAYNE 8/4 mcg/mL: Resistant Enterobacter cloacae Trimethoprim/Sulfamethoxazole DWAYNE <=0.5/9.5 mcg/mL: Susceptible Enterobacter cloacae Tetracycline DWAYNE 2 mcg/mL: Susceptible Enterobacter cloacae Piperacillin/Tazobactam DWAYNE 4/4 mcg/mL: Susceptible Enterobacter cloacae Ertapenem DWAYNE <=0.125 mcg/mL: Susceptible Enterobacter cloacae Tigecycline DWAYNE 1 mcg/mL: Susceptible Performing Organization Address City/State/Zipcode Phone Number [facility] DEPARTMENT OF PATHOLOGY AND [address] [place] [address] GENOMIC MEDICINE [address] [address] Type and screen (05/20/2018 10:03 AM EXPERIENCED TRUCK DRIVER) ABO grouping O [facility] Rh type NEG [facility] Antibody screen (gel) NEG [facility] Specimen Urine Performing Organization Address [facility] Phone Number [facility] DEPARTMENT OF PATHOLOGY AND [address] [place] [phone] [place] [phone] Urine culture (05/20/2018 10:03 AM EXPERIENCED TRUCK DRIVER) Urine culture isolate SEE UNDER GRAM STAIN FOR ID AND SUSCEPTIBILITY RESULTS. [facility] Comment: HOSPITAL Specimen Information Specimen Source: Urine Specimen Site: Clean catch Specimen Urine Performing Organization Address [facility] Phone Number [facility] DEPARTMENT OF PATHOLOGY AND [address] [place] [phone] [place] [phone] hCG qualitative, serum screen (05/20/2018 10:03 AM EXPERIENCED TRUCK DRIVER) hCG qualitative, serum NegativeComment: [facility] Sensitivity of HCG test: 25 HOSPITAL mIU/mL Specimen Blood Performing Organization Address [facility] Phone Number [facility] DEPARTMENT OF PATHOLOGY AND [address] [place] [phone] Potassium level (05/02/2018 6:00 AM EXPERIENCED TRUCK DRIVER)Only the most recent of2 resultswithin the time period is included. Potassium 4.0 3.5 - 5.0 mEq/L [facility] Specimen Plasma specimen Performing Organization Address [facility] Phone Number [facility] DEPARTMENT OF PATHOLOGY AND [address] [place] [phone] IR Nephrostomy Insertion Right (05/01/2018 11:45 AM EXPERIENCED TRUCK DRIVER) Narrative Performed At Right nephrostomy placement 05/01/2018 [facility] Indication: UPJ obstruction Pre-Procedure Diagnosis: Right UPJ obstruction Post-procedure Diagnosis : Right UPJ obstruction Manager Competitive Intelligence: Moy Tena Tugboat Dispatcher: None Level of anesthesia: Moderate Sedation Medications used: Fentanyl and Versed, 1% Lidocaine Anesthesia administration: Pulse oximetry, heart rate, and blood pressure were continuously monitored by a radiology nurse and the performing provider. Duration of intra-service [id number] anesthesia/sedation: 27 minutes Radiation Dose: 61 mGy (reference air kerma (ka, r)) Estimate blood loss: <5 mL Blood administered: None Complications: None Implants/Grafts: 10.2 British right nephrostomy Specimen: None Procedure: Informed consent was obtained and the patient placed prone. A timeout was performed. Preliminary ultrasound of the right kidney was performed. The right back was prepped and draped in standard sterile fashion. Using real-time ultrasound guidance a 21-gauge needle was advanced into a decompressed posterior calyx. An image was not stored in the medical record secondary to device limitations. Contrast injection confirmed placement within the renal pelvis. The needle was exchanged for a 10 British nephrostomy catheter using standard technique. Antegrade nephrostogram was performed (see findings below). The catheter was secured to the skin with 2-0 silk, connected to gravity drainage and a sterile dressing applied. Findings: Decompressed right collecting system with indwelling double-J ureteral stent. Right UPJ obstruction. Impression: Successful 10 British right nephrostomy placement. Recommendations or Plan: 1.Continue gravity drainage. The catheter can be capped after 24 hours given the indwelling double-J ureteral stent. 2.Follow-up with urology for UPJ obstruction management. Procedure Note Hm Interface, Radiology Results Incoming - 05/01/2018 1:57 PM EXPERIENCED TRUCK DRIVER Right nephrostomy placement 05/01/2018 Indication: UPJ obstruction Pre-Procedure Diagnosis: Right UPJ obstruction Post-procedure Diagnosis : Right UPJ obstruction Manager Competitive Intelligence: Moy Tena Tugboat Dispatcher: None Level of anesthesia: Moderate Sedation Medications used: Fentanyl and Versed, 1% Lidocaine Anesthesia administration: Pulse oximetry, heart rate, and blood pressure were continuously monitored by a radiology nurse and the performing provider. Duration of intra-service [id number] anesthesia/sedation: 27 minutes Radiation Dose: 61 mGy (reference air kerma (ka, r)) Estimate blood loss: <5 mL Blood administered: None Complications: None Implants/Grafts: 10.2 British right nephrostomy Specimen: None Procedure: Informed consent was obtained and the patient placed prone. A timeout was performed. Preliminary ultrasound of the right kidney was performed. The right back was prepped and draped in standard sterile fashion. Using real-time ultrasound guidance a 21-gauge needle was advanced into a decompressed posterior calyx. An image was not stored in the medical record secondary to device limitations. Contrast injection confirmed placement within the renal pelvis. The needle was exchanged for a 10 British nephrostomy catheter using standard technique. Antegrade nephrostogram was performed (see findings below). The catheter was secured to the skin with 2-0 silk, connected to gravity drainage and a sterile dressing applied. Findings: Decompressed right collecting system with indwelling double-J ureteral stent. Right UPJ obstruction. Impression: Successful 10 British right nephrostomy placement. Recommendations or Plan: 1. Continue gravity drainage. The catheter can be capped after 24 hours given the indwelling double-J ureteral stent. 2. Follow-up with urology for UPJ obstruction management. Performing Organization Address [facility] Phone Number [facility] [address] [place] [address] [place] External Study Exam (03/26/2018 12:31 PM CDT) Narrative Performed At This exam was not acquired at a [facility] facility and has not been [facility] interpreted by a [employer] Provider.The exam was imported into our imaging system for comparisons purposes. Performing Organization Address [facility] Phone Number [facility] [address] [place] [address] CT Abd/Pelvic External Study (03/19/2018 4:27 PM CDT)Only the most recent of2 resultswithin the time period is included. Narrative Performed At This exam was not acquired at a [facility] facility and has not been [facility] interpreted by a [facility] Provider.The exam was imported into our imaging system for comparisons purposes. Performing Organization Address [facility] Phone Number [facility] [address] [place] [address] after 09/16/2017 Insurance Payer Benefit Plan / Group Subscriber ID Type Phone Address BCBS BCBS CHOICE PPO/[employer]ER[employer] EMPL PPO xxxxxxxxx PPO [facility] (Home) [phone] [place], [place] (Work) [address] Advance Directives Patient has advance care planning documents on file. For more information, please contact:[address] [address]
[2018-09-17] MEDS ORDERED: METOCLOPRAMIDE 10 MG/2mL INJ ONE (14:26)
[2018-09-17] MEDS ORDERED: KETOROLAC 30 MG/ML INJ ONE (14:27)
[2018-09-17] MEDS ORDERED: DIPHENHYDRAMINE 50 MG/ML VIAL ONE (14:27)
--- NOTE | 2018-09-17 14:54 | ER ---
Nurse's Notes [facility] Name: Raquel Krueger Age: 33 yrs Sex: Female : 1985 Arrival Date: 09/17/2018 Time: 13:08 Bed 13 Private MD: Williams Martinez E Diagnosis: Headache Presentation: 09/17 13:14 Presenting complaint: Patient states: i have a really bad migraine, i have a history of tw2 headaches but i havent had one this bad, im very nauseated, its increasing gotten worse over 3 days. Transition of care: patient was not received from another setting of care. Onset of symptoms was September 17, 2018. Risk Assessment: Do you want to hurt yourself or someone else? Patient reports no desire to harm self or others. Initial Sepsis Screen: Does the patient meet any 2 criteria? No. Patient's initial sepsis screen is negative. Does the patient have a suspected source of infection? No. Patient's initial sepsis screen is negative. Care prior to arrival: None. 13:14 Method Of Arrival: Ambulatory tw2 13:14 Acuity: HARLEY 3 tw2 Triage Assessment: 13:15 Headache History: The patient has had previous headaches and this one is different than tw2 previous episodes, and this one is more severe than previous episodes. General: Appears uncomfortable, Behavior is calm, cooperative, appropriate for age. Pain: Pain currently is 10 out of 10 on a pain scale. Pain began 2-3 days ago. Also complains of nausea. Neuro: Level of Consciousness is awake, alert, obeys commands. 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 - Social history:: Smoking status: Patient uses tobacco products, smokes one pack cigarettes per day. - Ebola Screening: : Patient denies travel to an Ebola-affected area in the 21 days before illness onset. Screenin:15 Abuse screen: Denies threats or abuse. Nutritional screening: No deficits noted. tw2 Tuberculosis screening: No symptoms or risk factors identified. Fall Risk None identified. Assessment: 13:20 General: Appears uncomfortable, slender, Behavior is calm, cooperative, Denies fever. rb1 Pain: Complains of pain in head Pain currently is 10 out of 10 on a pain scale. Pain began x 3 days. Neuro: Level of Consciousness is awake, alert, obeys commands, Oriented to person, place, time, situation. Cardiovascular: Capillary refill < 3 seconds is brisk in bilateral fingers. Respiratory: Airway is patent Respiratory effort is even, unlabored, Respiratory pattern is regular, symmetrical. GI: Reports nausea. : No signs and/or symptoms were reported regarding the genitourinary system. Derm: Skin is pink, warm \T\ dry. Musculoskeletal: Range of motion: intact in all extremities. 14:20 Reassessment: Patient appears in no apparent distress at this time. Patient and/or rb1 family updated on plan of care and expected duration. Pain level reassessed. Patient is alert, oriented x 3, equal unlabored respirations, skin warm/dry/pink. 15:12 Reassessment: Patient appears in no apparent distress at this time. No changes from rb1 previously documented assessment. Vital Signs: 13:14 BP 145 / 102; Pulse 102; Resp 19; Temp 97.9(TE); Pulse Ox 100% on R/A; Weight 63.5 kg tw2 (R); Pain 10/10; 14:14 BP 154 / 83; Pulse 62; Resp 16; Pulse Ox 100% on R/A; rb1 15:13 BP 145 / 78; Pulse 65; Resp 16 S; Pulse Ox 100% on R/A; jl7 ED Course: 13:08 Patient arrived in ED. mr 13:08 Williams Martinez MD is Private Physician. mr 13:14 Triage completed. tw2 13:16 Arm band placed on. tw2 13:17 Bed in low position. Call light in reach. Adult w/ patient. Lights dimmed. tw2 13:29 Edy Arreaga MD is Attending Physician. gs 13:36 Roaxnne Mejia, STEPHANIE is Primary Nurse. rb1 13:52 Inserted saline lock: 22 gauge in right hand, using aseptic technique. jl7 15:12 No provider procedures requiring assistance completed. IV discontinued, intact, jl7 bleeding controlled, No redness/swelling at site. Pressure dressing applied. Administered Medications: 14:20 Drug: Reglan 10 mg Route: IVP; Site: right hand; rb1 14:35 Follow up: Response: No adverse reaction rb1 14:20 Drug: Benadryl 25 mg Route: IVP; Site: right hand; rb1 14:35 Follow up: Response: No adverse reaction rb1 14:20 Drug: TORadol 30 mg Route: IVP; Site: right hand; rb1 14:35 Follow up: Response: No adverse reaction; Pain is decreased rb1 Outcome: 14:54 Discharge ordered by . zayda 15:12 Discharged to home ambulatory. jl7 15:12 Condition: stable 15:12 Discharge instructions given to patient, family, Instructed on discharge instructions, follow up and referral plans. medication usage, Demonstrated understanding of instructions, follow-up care, medications, Prescriptions given X 1. 15:13 Patient left the ED. jl7 Signatures: Emmy Deutsch mr RobertoRoxanne, RN RN rb1 Melba Mcnally RN RN tw2 Kelley Rutledge RN RN jl7 Edy Arreaga MD MD
--- NOTE | 2018-09-17 14:54 | EDPHYS ---
Physician Documentation [facility] Name: Raquel Krueger Age: 33 yrs Sex: Female : 1985 Arrival Date: 09/17/2018 Time: 13:08 Bed 13 Private MD: Williams Martinez E ED Physician Edy Arreaga HPI: 09/17 14:42 This 33 yrs old Female presents to ER via Ambulatory with complaints of gs Headache. 14:42 The patient complains of pain to the left presybeterian. The patient describes the headache as gs throbbing. Onset: The symptoms/episode began/occurred gradually, 3 day(s) ago, and became worse and became persistent. Associated signs and symptoms: Pertinent positives: nausea. Severity of symptoms: At its worst the pain was severe, in the emergency department the pain has improved, moderately. Headache History: The patient has had previous headaches and this one is similar to previous episodes, and this one is more severe than previous episodes. The symptoms are alleviated by nothing. the symptoms are aggravated by nothing. The patient has experienced similar episodes in the past, several times. HISTORIAN DRAMATIC ARTS: 13:14 LMP 09/17/2018 tw2 Historical: - Allergies: 13:16 Demerol; tw2 - Home Meds: 13:16 acetaminophen-codeine 300-30 mg Oral tab 1 tab every 4 hours [Active]; tw2 - PSHx: 13:16 ; cyst on tail bone removed; right foot surg; Appendectomy; tw2 - Immunization history:: Adult Immunizations. - Social history:: Smoking status: Patient uses tobacco products, smokes one pack cigarettes per day. - Ebola Screening: : Patient denies travel to an Ebola-affected area in the 21 days before illness onset. ROS: 14:42 All other systems are negative. gs Exam: 14:42 Head/Face: Normocephalic, atraumatic. Eyes: Pupils equal round and reactive to light, gs extra-ocular motions intact. Lids and lashes normal. Conjunctiva and sclera are non-icteric and not injected. Cornea within normal limits. Periorbital areas with no swelling, redness, or edema. ENT: Nares patent. No nasal discharge, no septal abnormalities noted. Tympanic membranes are normal and external auditory canals are clear. Oropharynx with no redness, swelling, or masses, exudates, or evidence of obstruction, uvula midline. Mucous membranes moist. Neck: Trachea midline, no thyromegaly or masses palpated, and no cervical lymphadenopathy. Supple, full range of motion without nuchal rigidity, or vertebral point tenderness. No Meningismus. Chest/axilla: Normal chest wall appearance and motion. Nontender with no deformity. No lesions are appreciated. Cardiovascular: Regular rate and rhythm with a normal S1 and S2. No gallops, murmurs, or rubs. Normal PMI, no JVD. No pulse deficits. Respiratory: Lungs have equal breath sounds bilaterally, clear to auscultation and percussion. No rales, rhonchi or wheezes noted. No increased work of breathing, no retractions or nasal flaring. Abdomen/GI: Soft, non-tender, with normal bowel sounds. No distension or tympany. No guarding or rebound. No evidence of tenderness throughout. Back: No spinal tenderness. No costovertebral tenderness. Full range of motion. Skin: Warm, dry with normal turgor. Normal color with no rashes, no lesions, and no evidence of cellulitis. MS/ Extremity: Pulses equal, no cyanosis. Neurovascular intact. Full, normal range of motion. Neuro: Awake and alert, GCS 15, oriented to person, place, time, and situation. Cranial nerves II-XII grossly intact. Motor strength 5/5 in all extremities. Sensory grossly intact. Cerebellar exam normal. Normal gait. 14:42 Constitutional: The patient appears alert, awake, uncomfortable. Vital Signs: 13:14 BP 145 / 102; Pulse 102; Resp 19; Temp 97.9(TE); Pulse Ox 100% on R/A; Weight 63.5 kg tw2 (R); Pain 10/10; 14:14 BP 154 / 83; Pulse 62; Resp 16; Pulse Ox 100% on R/A; rb1 15:13 BP 145 / 78; Pulse 65; Resp 16 S; Pulse Ox 100% on R/A; jl7 MDM: 13:39 Patient medically screened. gs 14:42 Differential diagnosis: hypertensive headache, tension headache, vasomotor headache. gs Data reviewed: vital signs, nurses notes. Counseling: I had a detailed discussion with the patient and/or guardian regarding: the historical points, exam findings, and any diagnostic results supporting the discharge/admit diagnosis, the presence of at least one elevated blood pressure reading (>120/80) during this emergency department visit. Response to treatment: the patient's symptoms have markedly improved after treatment, the patient's condition has returned to base line, and as a result, I will discharge patient. Special discussion: I have referred the patient to see his PCP for further evaluation of high blood pressure. Administered Medications: 14:20 Drug: Reglan 10 mg Route: IVP; Site: right hand; rb1 14:35 Follow up: Response: No adverse reaction rb1 14:20 Drug: Benadryl 25 mg Route: IVP; Site: right hand; rb1 14:35 Follow up: Response: No adverse reaction rb1 14:20 Drug: TORadol 30 mg Route: IVP; Site: right hand; rb1 14:35 Follow up: Response: No adverse reaction; Pain is decreased rb1 Disposition: 09/17/18 14:54 Discharged to Home. Impression: Headache. - Condition is Stable. - Discharge Instructions: General Headache Without Cause, Migraine Headache. - Prescriptions for Fiorinal 50- 325-40 mg Oral Capsule - take 1 capsule by ORAL route every 4 hours As needed - not to exceed 6 capsules per day; 12 capsule. - Medication Reconciliation Form, Thank You Letter, Antibiotic Education, Prescription Opioid Use form. - Follow up: Private Physician; When: 2 - 3 days; Reason: Re-evaluation by your physician. Signatures: Roxanne Mejia RN RN rb1 Melba Mcnally RN RN tw2 Kelley Rutledge RN RN jl7 Edy Arreaga MD MD Corrections: (The following items were deleted from the chart) 15:13 14:54 09/17/2018 14:54 Discharged to Home. Impression: Headache. Condition is Stable. jl7 Forms are Medication Reconciliation Form, Thank You Letter, Antibiotic Education, Prescription Opioid Use. Follow up: Private Physician; When: 2 - 3 days; Reason: Re-evaluation by your physician. gs
== END 2018-09-17 15:13 | disposition home or self-care (01) ==
LOC: ER 13:04
DX: R51 Headache (principal); F17.210 Nicotine dependence, cigarettes, uncomplicated; Z88.5 Allergy status to narcotic agent
CPT/HCPCS: 96374; 96375; 99283; J2765